=== PATIENT | female | born 1970 | race Hispanic/Latino ===

== ENCOUNTER 2017-07-19 06:12 | Day surgery (SDC) | payer OTHER ==
[2017-07-18 15:21] VITALS: BP 108/63
[2017-07-18 15:29] LABS: BASOPHILS % (AUTO) 0.6 % (0.0-5.0); EOSINOPHILS % (AUTO) 1.6 % (0.0-8.0); HEMATOCRIT 38.2 % (36-48); LYMPHOCYTES % (AUTO) 18.1 % (21.0-51.0); MEAN CORPUSCULAR HEMOGLOBIN 29.2 pg (27.0-33.0); MEAN CORPUSCULAR HGB CONC 33.3 g/dL (32.0-36.0); MEAN CORPUSCULAR VOLUME 87.6 fL (79-99); MONOCYTES % (AUTO) 6.8 % (3.0-13.0); NEUTROPHILS % (AUTO) 72.9 % (40.0-77.0); NUCLEATED RED BLOOD CELLS 0.1 % (0.0-0.19); PLATELET COUNT (AUTO) 421 K/uL (130-400); RED BLOOD CELL COUNT(AUTO) 4.36 MIL/uL (4.00-5.50); RED CELL DISTRIBUTION WIDTH 14.4 % (11.0-15.5); WHITE BLOOD COUNT (AUTO) 12.5 K/uL (4.8-10.8)
[2017-07-18 16:01] LABS: APPEARANCE,URINE Clear (CLEAR); BILIRUBIN,URINE Negative (NEGATIVE); COLOR,URINE Yellow (YELLOW); GLUCOSE, URINE (UA) Negative (NEGATIVE); KETONES,URINE Trace mg/dL (NEGATIVE); LEUKOCYTE ESTERASE ,URINE Small (NEGATIVE); NITRATE,URINE Positive (NEGATIVE); OCCULT BLOOD,URINE Nonhemolyzed Trace (NEGATIVE); PROTEIN,URINE Negative (NEGATIVE)
[2017-07-18 16:16] LABS: BACTERIA,URINE Many /HPF (None Seen); RBC,URINE 0-1 /HPF (0-1)
[2017-07-19] VITALS (17 sets, daily range): BP systolic 97–116; BP diastolic 53–69
[~2017-07-19] VITALS: Ht 170.2 cm; Wt 125.1 kg
[~2017-07-19 06:12] MED LIST: BETH5TAB PO; CETI10CA5 PO; DESV100T PO; GENTAMICIN SULFATE 80 MG in SODIUM CHLORIDE 0.9% 100 ML IV SCH; LOSA25TA21 PO; MELA5TAB14 PO; METF500T6 PO
[2017-07-19] MEDS ORDERED: SODIUM CHLORIDE 0.9% 1000ML 1,000 ML IV ONE (06:32)
[2017-07-19] MEDS: CEFAZOLIN SODIUM 1 GM VIAL ONE ×2 (06:42→07:51)
[2017-07-19] MEDS ORDERED: CELE-84 PO (06:45)
[2017-07-19] MEDS ORDERED: ATOR40TA71 PO (06:45)
[2017-07-19] MEDS ORDERED: FENO48TA4 PO (06:45)
[2017-07-19] MEDS ORDERED: BUPIVACAINE/PF 0.5% 30ML VIAL ONE (07:07)
[2017-07-19] MEDS ORDERED: METHYLPREDNISOLONE SOD SUCC 40MG/ML 1ML ONE (07:08)
[2017-07-19] MEDS: GENTAMICIN SULFATE 240 MG in SODIUM CHLORIDE 0.9% 100 ML IV SCH ×2 (07:24)
[2017-07-19] MEDS ORDERED: GLYCOPYRROLATE 0.2 MG/ML 5 ML VIAL ONE (07:35)
[2017-07-19] MEDS ORDERED: LIDOCAINE PF 2% 5ML ABBOJECT ONE (07:35)
[2017-07-19] MEDS ORDERED: DEXAMETHASONE SOD PHOSPHATE 10MG/ML 1ML VIAL ONE (07:36)
[2017-07-19] MEDS ORDERED: FENTANYL CITRATE PF 50 MCG/1 ML 2ML VIAL ONE ×2 (07:36)
[2017-07-19] MEDS ORDERED: MIDAZOLAM HCL 1 MG/ML 2ML VIAL ONE ×2 (07:36→08:03)
[2017-07-19] MEDS ORDERED: PROPOFOL 10 MG/ML 20ML VIAL IV ONE (07:36)
[2017-07-19] MEDS ORDERED: IOPAMIDOL 10 ML VIAL ONE (07:50)
[2017-07-19] MEDS ORDERED: CEFAZOLIN 3GM /D5W 100ML 100 ML IV ONE (09:00)
== END 2017-07-19 10:00 | disposition home or self-care (01) ==
LOC: DAH 06:12
PROVIDERS: ATTEND Orthopaedic Surgery
DX: M16.12 Unilateral primary osteoarthritis, left hip (principal); Z68.41 Body mass index [BMI] 40.0-44.9, adult; Z79.899 Other long term (current) drug therapy; K21.9 Gastro-esophageal reflux disease without esophagitis; E78.5 Hyperlipidemia, unspecified; Z98.890 Other specified postprocedural states; Z83.3 Family history of diabetes mellitus; Z82.49 Family history of ischemic heart disease and other diseases of the circulatory system; Z80.8 Family history of malignant neoplasm of other organs or systems
CPT/HCPCS: 20610; 36415; 77002; 81001; 82948 ×2; 85025; A4218; J0690 ×2; J1030; J1100; J1580 ×2; J2001; J2250 ×2; J2704; J3010 ×2; J3490 ×2; J7030; Q9966; J2920

== ENCOUNTER → 2017-11-15 | Outpatient (CLI) | payer OTHER ==
[~2017-11-15] MED LIST changes: +ATOR40TA71 PO; +CELE-84 PO; +FENO48TA4 PO; -GENTAMICIN SULFATE 80 MG in SODIUM CHLORIDE 0.9% 100 ML IV SCH; +LOSA25TA16 PO; -LOSA25TA21 PO; +METF-444 PO; -METF500T6 PO
== END | disposition home or self-care (01) ==
LOC: RAH 13:14
PROVIDERS: ATTEND Internal Medicine
DX: Z01.812 Encounter for preprocedural laboratory examination (principal); K21.9 Gastro-esophageal reflux disease without esophagitis; M19.90 Unspecified osteoarthritis, unspecified site; F32.9 Major depressive disorder, single episode, unspecified; E78.5 Hyperlipidemia, unspecified
CPT/HCPCS: 71046

== ENCOUNTER 2017-11-27 14:00 | Inpatient (IN) | payer OTHER ==
[~2017-11-27] VITALS: Ht 170.2 cm; Wt 122.7 kg
[~2017-11-27 14:00] MED LIST changes: -BETH5TAB PO; -CETI10CA5 PO; -MELA5TAB14 PO
[2017-11-27 15:15] VITALS: BP 107/65
[2017-11-27 15:22] LABS: BASOPHILS % (AUTO) 0.4 % (0.0-5.0); EOSINOPHILS % (AUTO) 1.4 % (0.0-8.0); HEMATOCRIT 37.2 % (36-48); LYMPHOCYTES % (AUTO) 14.4 % (21.0-51.0); MEAN CORPUSCULAR HEMOGLOBIN 28.6 pg (27.0-33.0); MEAN CORPUSCULAR HGB CONC 32.7 g/dL (32.0-36.0); MEAN CORPUSCULAR VOLUME 87.5 fL (79-99); MONOCYTES % (AUTO) 5.1 % (3.0-13.0); NEUTROPHILS % (AUTO) 78.7 % (40.0-77.0); PLATELET COUNT (AUTO) 337 K/uL (130-400); RED BLOOD CELL COUNT(AUTO) 4.25 MIL/uL (4.00-5.50); RED CELL DISTRIBUTION WIDTH 14.6 % (11.0-15.5); WHITE BLOOD COUNT (AUTO) 14.3 K/uL (4.8-10.8)
[2017-11-27 15:25] LABS: APPEARANCE,URINE Clear (CLEAR); BILIRUBIN,URINE Negative (NEGATIVE); COLOR,URINE Yellow (YELLOW); GLUCOSE, URINE (UA) Negative (NEGATIVE); KETONES,URINE Negative (NEGATIVE); LEUKOCYTE ESTERASE ,URINE Negative (NEGATIVE); NITRATE,URINE Negative (NEGATIVE); OCCULT BLOOD,URINE Small (NEGATIVE); PH,URINE 5.5 (5.0-8.0); PROTEIN,URINE Negative (NEGATIVE)
[2017-11-27 15:32] LABS: CREATININE 0.8 mg/dL (0.5-1.5)
[2017-11-27 15:34] LABS: INR 0.96 (0.85-1.15); PARTIAL THROMBOPLASTIN TIME 31.1 SEC (26.3-35.5); PROTHROMBIN TIME 10.1 SEC (9.6-11.6)
[2017-11-27 15:53] LABS: BACTERIA,URINE Few /HPF (None Seen); SQUAMOUS EPITHELIAL CELL,UR Few /HPF (0-2); WBC,URINE 0-1 /HPF (0-1)
[2017-11-27 15:54] LABS: MUCUS,URINE Few LPF (None Seen)
[2017-11-27] MEDS ORDERED: BETH25TA PO (17:09)
[2017-11-27] MEDS ORDERED: ACET-2743 PO (17:09)
[2017-11-27] MEDS ORDERED: LUBI24CA2 PO (17:09)
[2017-11-27] MEDS ORDERED: FAMO20TA8 PO (17:09)
[2017-11-27] MEDS ORDERED: MELATONIN PO (17:09)
[2017-11-27] MEDS ORDERED: TRAM50TA4 PO (17:09)
[2017-11-27] MEDS ORDERED: CEPH500C2 PO (17:09)
[2017-11-27] MEDS ORDERED: MONT10TA24 PO (17:13)
[2017-11-28] VITALS (18 sets, daily range): BP systolic 102–126; BP diastolic 54–66
[2017-11-28] MEDS ORDERED: CEFAZOLIN 3GM /D5W 100ML 100 ML IV SCH (06:00)
[2017-11-28] MEDS ORDERED: SODIUM CHLORIDE 0.9% 1000ML 1,000 ML IV ONE (12:17)
[2017-11-28] MEDS ORDERED: CEFAZOLIN SODIUM 1 GM VIAL ONE ×2 (12:17→15:18)
[2017-11-28] MEDS ORDERED: METOCLOPRAMIDE 10 MG/2 ML VIAL ONE (12:58)
[2017-11-28] MEDS ORDERED: CELECOXIB 200 MG CAP ONE (12:59)
[2017-11-28] MEDS ORDERED: ACETAMINOPHEN EXTRA STRENGTH 500 MG TABLET ONE (12:59)
[2017-11-28] MEDS ORDERED: KETOROLAC TROMETHAMINE 15MG/ML ONE (12:59)
[2017-11-28] MEDS ORDERED: OXYCODONE HCL 10 MG TAB.SR.12H PO ONE (13:00)
[2017-11-28] MEDS ORDERED: LIDOCAINE PF 2% 5ML ABBOJECT ONE (13:10)
[2017-11-28] MEDS ORDERED: ROPIVACAINE 0.5% 5MG/ML 30ML IJ ONE (13:10)
[2017-11-28] MEDS ORDERED: GLYCOPYRROLATE 1 MG/5 ML SYRINGE ONE (13:11)
[2017-11-28] MEDS ORDERED: ROCURONIUM 10MG/1ML SYR 10 MG/ML ML ONE ×2 (13:11→15:36)
[2017-11-28] MEDS ORDERED: MIDAZOLAM HCL 1 MG/ML 2ML VIAL ONE ×2 (13:11→14:21)
[2017-11-28] MEDS ORDERED: FENTANYL CITRATE PF 50 MCG/1 ML 2ML VIAL ONE ×2 (13:11→17:40)
[2017-11-28] MEDS ORDERED: NEOSTIGMINE 5MG/5ML SYR IV ONE (13:11)
[2017-11-28] MEDS ORDERED: PROPOFOL 10 MG/ML 20ML VIAL IV ONE (13:11)
[2017-11-28] MEDS ORDERED: DEXAMETHASONE SOD PHOSPHATE 10MG/ML 1ML VIAL ONE (13:12)
[2017-11-28] MEDS ORDERED: ONDANSETRON HCL 4 MG/2 ML VIAL ONE (13:12)
[2017-11-28] MEDS ORDERED: FAMOTIDINE/PF 20 MG/2 ML VIAL IV ONE (13:23)
[2017-11-28] MEDS ORDERED: KETAMINE 50MG/ML SYRINGE 50 MG/ML DISP.SYRIN IV ONE (13:24)
[2017-11-28] MEDS ORDERED: TRANEXAMIC ACID 1000MG/10ML IV ONE (15:18)
[2017-11-28] MEDS: CEFAZOLIN SODIUM 1 GM VIAL ONE ×2 (17:15→17:16)
[2017-11-28] MEDS ORDERED: LIDOCAINE HCL-MPF 1% 2ML VIAL IVP PRN (17:45)
[2017-11-28] MEDS ORDERED: TRAMADOL HCL 50 MG TABLET PO PRN (17:45)
[2017-11-28] MEDS ORDERED: FERROUS FUMARATE 324 MG TABLET PO PRN (17:45)
[2017-11-28] MEDS ORDERED: ONDANSETRON HCL 4 MG/2 ML VIAL IVP PRN (17:45)
[2017-11-28] MEDS ORDERED: TEMAZEPAM 15 MG CAPSULE PO PRN (17:45)
[2017-11-28] MEDS ORDERED: DiphenhydrAMINE HCL 50 MG/ML VIAL IVP PRN (17:45)
[2017-11-28] MEDS ORDERED: POTASSIUM CHLORIDE 10% ELIXIR 20 MEQ/15 ML UDCUP PO PRN (17:45)
[2017-11-28] MEDS ORDERED: POTASSIUM CHLORIDE 20MEQ/100ML 100 ML IV PRN (17:45)
[2017-11-28] MEDS ORDERED: POTASSIUM CHLORIDE 20 MEQ ERTAB PO PRN (17:45)
[2017-11-28] MEDS ORDERED: MEPERIDINE-PF 25 MG/ML SYG ONE ×2 (18:38→18:50)
[2017-11-28] MEDS ORDERED: LUBIPROSTONE 24 MCG CAP PO PRN (19:45)
[2017-11-28] MEDS: INSULIN HUMULIN R 100 UNIT/ML 3ML SQ SCH (21:00)
[2017-11-28] MEDS ORDERED: FAMOTIDINE 20MG TAB 20 MG TAB PO SCH (21:00)
[2017-11-28] MEDS: SODIUM CHLORIDE 0.9% 1000ML 1,000 ML IV SCH (21:09)
[2017-11-28] MEDS: KETOROLAC TROMETHAMINE 15MG/ML IV PRN (21:10)
[2017-11-28] MEDS: OXYCODONE HCL 5 MG TAB PO PRN (21:11)
[2017-11-28] MEDS: ATORVASTATIN CALCIUM 40 MG TABLET PO SCH (21:16)
[2017-11-28] MEDS: FENOFIBRATE NANOCRYSTALLIZED 48 MG TAB PO SCH (21:16)
[2017-11-28] MEDS: PREGABALIN 25 MG CAP PO SCH (21:16)
[2017-11-28] MEDS: ACETAMINOPHEN EXTRA STRENGTH 500 MG TABLET PO SCH (21:16)
[2017-11-28] MEDS: LOSARTAN 50 MG TABLET PO SCH (21:17)
[2017-11-28] MEDS: ASPIRIN 325 MG TABLET PO SCH (21:17)
[2017-11-28] MEDS: CELECOXIB 200 MG CAP PO SCH (21:17)
[2017-11-28] MEDS: BETHANECHOL CHLORIDE 25 MG TABLET PO SCH (21:17)
[2017-11-28] MEDS: CEFAZOLIN 3GM /D5W 100ML 100 ML IV SCH (23:25)
[2017-11-29] MEDS: ACETAMINOPHEN EXTRA STRENGTH 500 MG TABLET PO SCH ×4 (00:47→23:59)
[2017-11-29] MEDS: OXYCODONE HCL 5 MG TAB PO PRN ×2 (01:17→08:28)
[2017-11-29] MEDS: SODIUM CHLORIDE 0.9% 1000ML 1,000 ML IV SCH ×2 (03:42→13:42)
[2017-11-29 04:29] VITALS: BP 105/51
[2017-11-29 04:52] LABS: HEMATOCRIT 29.8 % (36-48); MEAN CORPUSCULAR HEMOGLOBIN 28.7 pg (27.0-33.0); MEAN CORPUSCULAR HGB CONC 32.8 g/dL (32.0-36.0); MEAN CORPUSCULAR VOLUME 87.7 fL (79-99); PLATELET COUNT (AUTO) 305 K/uL (130-400); RED CELL DISTRIBUTION WIDTH 14.7 % (11.0-15.5); WHITE BLOOD COUNT (AUTO) 17.8 K/uL (4.8-10.8)
[2017-11-29 05:06] LABS: CREATININE 0.7 mg/dL (0.5-1.5)
[2017-11-29] MEDS: INSULIN HUMULIN R 100 UNIT/ML 3ML SQ SCH ×4 (05:21→21:00)
[2017-11-29] MEDS: CEFAZOLIN 3GM /D5W 100ML 100 ML IV SCH (05:50)
[2017-11-29 07:30] VITALS: BP 101/57
[2017-11-29] MEDS: ASPIRIN 325 MG TABLET PO SCH ×2 (08:24→21:50)
[2017-11-29] MEDS: BETHANECHOL CHLORIDE 25 MG TABLET PO SCH ×2 (08:24→21:50)
[2017-11-29] MEDS: CELECOXIB 200 MG CAP PO SCH ×2 (08:25→21:50)
[2017-11-29] MEDS: METFORMIN HCL 500 MG TAB.SR.24H PO SCH (08:26)
[2017-11-29] MEDS: PREGABALIN 25 MG CAP PO SCH ×2 (08:26→21:50)
[2017-11-29] MEDS: POLYETHYLENE GLYCOL 3350 17 GM POWD.PACK PO SCH (08:27)
[2017-11-29] MEDS: MONTELUKAST SODIUM 10 MG TAB PO SCH (08:27)
[2017-11-29] MEDS: FAMOTIDINE 20MG TAB 20 MG TAB PO SCH (08:27)
[2017-11-29] MEDS: CALCIUM CARBONATE 500 MG TABLET PO PRN ×2 (08:27→21:50)
[2017-11-29] MEDS: DESVENLAFAXINE SUCCINATE 100 MG PO SCH (08:35)
[2017-11-29] MEDS ORDERED: TAMSULOSIN HCL 0.4 MG CAP.ER.24H PO SCH (09:00)
[2017-11-29] MEDS: KETOROLAC TROMETHAMINE 15MG/ML IV PRN ×3 (10:01→23:59)
[2017-11-29 11:15] VITALS: BP 97/55
[2017-11-29 16:00] VITALS: BP 100/69
[2017-11-29 20:29] VITALS: BP 110/57
[2017-11-29] MEDS: ATORVASTATIN CALCIUM 40 MG TABLET PO SCH (21:50)
[2017-11-29] MEDS: LOSARTAN 50 MG TABLET PO SCH (21:50)
[2017-11-29] MEDS: FENOFIBRATE NANOCRYSTALLIZED 48 MG TAB PO SCH (21:50)
[2017-11-29 23:57] VITALS: BP 110/57
[2017-11-30 04:59] VITALS: BP 107/53
[2017-11-30] MEDS: INSULIN HUMULIN R 100 UNIT/ML 3ML SQ SCH ×3 (06:38→16:29)
[2017-11-30 07:24] VITALS: BP 108/68
[2017-11-30] MEDS: ASPIRIN 325 MG TABLET PO SCH ×2 (08:32→20:31)
[2017-11-30] MEDS: MONTELUKAST SODIUM 10 MG TAB PO SCH (08:33)
[2017-11-30] MEDS: PREGABALIN 25 MG CAP PO SCH ×2 (08:33→21:28)
[2017-11-30] MEDS: POLYETHYLENE GLYCOL 3350 17 GM POWD.PACK PO SCH (08:33)
[2017-11-30] MEDS: FAMOTIDINE 20MG TAB 20 MG TAB PO SCH (08:33)
[2017-11-30] MEDS: METFORMIN HCL 500 MG TAB.SR.24H PO SCH (08:33)
[2017-11-30] MEDS: CELECOXIB 200 MG CAP PO SCH ×2 (08:33→21:27)
[2017-11-30] MEDS: BETHANECHOL CHLORIDE 25 MG TABLET PO SCH ×2 (08:33→21:28)
[2017-11-30] MEDS: ACETAMINOPHEN EXTRA STRENGTH 500 MG TABLET PO SCH ×2 (08:34→16:26)
[2017-11-30] MEDS: OXYCODONE HCL 5 MG TAB PO PRN ×3 (08:37→20:31)
[2017-11-30] MEDS: DESVENLAFAXINE SUCCINATE 100 MG PO SCH (08:43)
[2017-11-30 11:22] VITALS: BP 100/54
[2017-11-30 16:00] VITALS: BP 113/55
[2017-11-30] MEDS ORDERED: BISACODYL 10 MG SUPP.RECT RC ONE (17:33)
[2017-11-30] MEDS ORDERED: HYDR-309 PO (18:57)
[2017-11-30] MEDS ORDERED: ASPI-1012 PO (18:57)
[2017-11-30] MEDS: ATORVASTATIN CALCIUM 40 MG TABLET PO SCH (21:00)
[2017-11-30] MEDS: FENOFIBRATE NANOCRYSTALLIZED 48 MG TAB PO SCH (21:28)
[2017-11-30] MEDS: LOSARTAN 50 MG TABLET PO SCH (21:28)
[2017-12-01] MEDS ORDERED: BISACODYL 10 MG SUPP.RECT RC PRN (17:45)
== END 2017-11-30 22:10 | DRG 470 ==
LOC: EDSTATUS 14:00 → DAHIP 11-28 11:20 → 4AH 11-28 19:20
PROVIDERS: ADMIT Orthopaedic Surgery; ATTEND Orthopaedic Surgery
PROC: 0SRB0JZ Replacement of Left Hip Joint with Synthetic Substitute, Open Approach (ICD-10-PCS; principal; 2017-11-29)
PROC: 3E0234Z Introduction of Serum, Toxoid and Vaccine into Muscle, Percutaneous Approach (ICD-10-PCS; 2017-11-29)
DX: M16.12 Unilateral primary osteoarthritis, left hip (principal); F11.20 Opioid dependence, uncomplicated; I10 Essential (primary) hypertension; K21.9 Gastro-esophageal reflux disease without esophagitis; E78.2 Mixed hyperlipidemia; E11.42 Type 2 diabetes mellitus with diabetic polyneuropathy; K76.0 Fatty (change of) liver, not elsewhere classified; N31.9 Neuromuscular dysfunction of bladder, unspecified; R39.15 Urgency of urination; E11.65 Type 2 diabetes mellitus with hyperglycemia; Z23 Encounter for immunization; Z82.49 Family history of ischemic heart disease and other diseases of the circulatory system; Z80.9 Family history of malignant neoplasm, unspecified; Z83.3 Family history of diabetes mellitus
CPT/HCPCS: 36415; 73503; 80048; 81001; 82948; 85025; 85027; 85610; 85730; 88304; 88311; 96374; 96375; 97039; A4218; C1776; J0690; J1100; J1885; J2001; J2175; J2250; J2405; J2704; J2710; J2765; J2795; J3010; J3490; J7030; Q2038

== ENCOUNTER → 2018-08-15 | Outpatient (CLI) | payer OTHER ==
[~2018-08-15] MED LIST changes: +ASPI-1012 PO; +BETH25TA PO; -CELE-84 PO; +CEPH500C2 PO; +FAMO20TA8 PO; +HYDR-4457 PO; -LOSA25TA16 PO; +LOSA25TA41 PO; +LUBI24CA2 PO; +MELATONIN PO; +MONT10TA24 PO
== END | disposition home or self-care (01) ==
LOC: RAH 11:22
PROVIDERS: ATTEND Internal Medicine
DX: M79.642 Pain in left hand (principal)
CPT/HCPCS: 73130

== ENCOUNTER → 2019-02-08 | Outpatient (CLI) | payer OTHER ==
[~2019-02-08] MED LIST changes: +FENO48TA16 PO; -FENO48TA4 PO
== END | disposition home or self-care (01) ==
LOC: RAH 13:15
PROVIDERS: ATTEND Internal Medicine
DX: Z12.31 Encounter for screening mammogram for malignant neoplasm of breast (principal)
CPT/HCPCS: 77067

== ENCOUNTER 2019-08-01 01:58 | Emergency (ER) | payer OTHER ==
[~2019-08-01 01:58] MED LIST changes: -FENO48TA16 PO; +FENO48TA9 PO; -MONT10TA24 PO; +MONT10TA26 PO
[2019-08-01 02:58] LABS: BASOPHILS % (AUTO) 0.3 % (0.0-5.0); EOSINOPHILS % (AUTO) 0.7 % (0.0-8.0); HEMATOCRIT 39.8 % (36-48); LYMPHOCYTES % (AUTO) 11.2 % (21.0-51.0); MEAN CORPUSCULAR HEMOGLOBIN 30.2 pg (27.0-33.0); MEAN CORPUSCULAR HGB CONC 32.7 g/dL (32.0-36.0); MEAN CORPUSCULAR VOLUME 92.3 fL (79-99); MONOCYTES % (AUTO) 3.6 % (3.0-13.0); NEUTROPHILS % (AUTO) 83.9 % (40.0-77.0); PLATELET COUNT (AUTO) 304 K/uL (130-400); RED BLOOD CELL COUNT(AUTO) 4.31 MIL/uL (4.00-5.50); WHITE BLOOD COUNT (AUTO) 15.7 K/uL (4.8-10.8)
[2019-08-01 03:05] LABS: CREATININE 0.8 mg/dL (0.5-1.5); POTASSIUM 3.5 mmol/L (3.5-5.1)
[2019-08-01] MEDS ORDERED: ONDANSETRON HCL 4 MG/2 ML VIAL ONE (03:05)
[2019-08-01] MEDS ORDERED: FAMOTIDINE/PF 20 MG/2 ML VIAL IV ONE (03:06)
[2019-08-01 03:09] LABS: ALBUMIN 3.6 g/dL (3.5-5.0); BILIRUBIN,TOTAL 0.5 mg/dL (0.2-1.0); TOTAL PROTEIN, SERUM 7.3 g/dL (6.0-8.3)
[2019-08-01 03:10] LABS: INR 0.92 (0.85-1.15); PARTIAL THROMBOPLASTIN TIME 28.2 SEC (26.3-35.5)
[2019-08-01] MEDS ORDERED: LIDOCAINE HCL 2% VISCOUS 15 ML UDCUP ONE (04:32)
[2019-08-01] MEDS ORDERED: METOCLOPRAMIDE 10 MG/2 ML VIAL ONE (04:32)
[2019-08-01] MEDS ORDERED: MAG HYDROX/AL HYDROX/SIMETH ES 30 ML SUSP UDCUP ONE (04:32)
[2019-08-01 04:47] LABS: APPEARANCE,URINE Clear (CLEAR); BILIRUBIN,URINE Negative (NEGATIVE); COLOR,URINE Dark Yellow (YELLOW); GLUCOSE, URINE (UA) Negative (NEGATIVE); KETONES,URINE Trace mg/dL (NEGATIVE); LEUKOCYTE ESTERASE ,URINE Trace (NEGATIVE); NITRATE,URINE Negative (NEGATIVE); OCCULT BLOOD,URINE Small (NEGATIVE); PROTEIN,URINE Negative (NEGATIVE)
[2019-08-01 05:10] LABS: BACTERIA,URINE Few /HPF (None Seen); MUCUS,URINE Few LPF (None Seen); SQUAMOUS EPITHELIAL CELL,UR 0-2 /HPF (0-2)
== END 2019-08-01 05:22 | disposition home or self-care (01) ==
LOC: EDH 01:58
DX: R10.13 Epigastric pain (principal); R11.10 Vomiting, unspecified; E11.9 Type 2 diabetes mellitus without complications; E78.00 Pure hypercholesterolemia, unspecified; K21.9 Gastro-esophageal reflux disease without esophagitis; F32.9 Major depressive disorder, single episode, unspecified; Z90.49 Acquired absence of other specified parts of digestive tract; Z90.710 Acquired absence of both cervix and uterus
CPT/HCPCS: 36415; 76705; 80053; 81001; 82550; 83605; 83690; 84484; 85025; 85610; 85730; 93005; 96361; 96374; 96375; 99285; J2405; J2765; J3490

== ENCOUNTER → 2020-02-10 | Outpatient (CLI) | payer OTHER ==
[~2020-02-10] MED LIST changes: -MONT10TA26 PO; +MONT10TA96 PO
== END | disposition home or self-care (01) ==
LOC: RAH 12:45
PROVIDERS: ATTEND Internal Medicine
DX: Z12.31 Encounter for screening mammogram for malignant neoplasm of breast (principal); N64.89 Other specified disorders of breast
CPT/HCPCS: 77067

== ENCOUNTER → 2021-02-10 | Outpatient (CLI) | payer OTHER ==
[~2021-02-10] MED LIST changes: +FENO48TA10 PO; -FENO48TA9 PO; +MONT-39 PO; -MONT10TA96 PO
== END | disposition home or self-care (01) ==
LOC: RAH 13:09
PROVIDERS: ATTEND Internal Medicine
DX: Z12.31 Encounter for screening mammogram for malignant neoplasm of breast (principal)
CPT/HCPCS: 77067

== ENCOUNTER → 2023-03-02 | Outpatient (CLI) | payer OTHER | END | disposition home or self-care (01) | LOC: RAH 14:17 | PROVIDERS: ATTEND Internal Medicine | DX: Z12.31 Encounter for screening mammogram for malignant neoplasm of breast (principal) | CPT/HCPCS: 77067 ==

== ENCOUNTER → 2024-03-04 | Outpatient (CLI) | payer OTHER ==
--- NOTE | 2024-03-04 09:34 | HMCIMG ---
SCREENING MAMMOGRAM REASON: Annual Exam COMPARISON: none TECHNIQUE: CC and MLO views of the bilateral breasts were performed.CAD was performed as well. FINDINGS: Parenchymal density: There are scattered areas of fibroglandular density. There are no focal mass lesions. There are no pathologic appearing calcifications. There is no evidence of architectural distortion or skin thickening. IMPRESSION: Normal screening mammogram The patient was entered into a reminder system with a target due date for their next mammogram. BI-RADS CATEGORY 1: NEGATIVE Recommend monthly self breast exam as well as annual clinical examination. A negative x-ray should not delay biopsy if a dominant or clinically suspicious mass is present, since 8-10% of cancers are not identified by mammography. Dense breasts particularly, may obscure an underlying neoplasm. Some of these may be detected clinically and therefore, clinical examination is an essential part of breast evaluation.
== END | disposition home or self-care (01) ==
LOC: RAH 08:58
PROVIDERS: ATTEND Internal Medicine
DX: Z12.31 Encounter for screening mammogram for malignant neoplasm of breast (principal); R92.30 Dense breasts, unspecified
CPT/HCPCS: 77067

== ENCOUNTER → 2024-03-21 | Outpatient (CLI) | payer OTHER ==
--- NOTE | 2024-03-21 13:16 | HMCIMG ---
HIP BILAT 2VW REASON: PELVIC AND PERINEAL PAIN COMPARISON: None TECHNIQUE: AP pelvis and bilateral hip views were performed, 3 views. 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 Bones appear normal. There are no fractures. Right hip joint space appears preserved as do the SI joints. There are no focal osseous lesions. IMPRESSION: 1. No acute finding.
== END | disposition home or self-care (01) ==
LOC: RAH 12:17
PROVIDERS: ATTEND Internal Medicine
DX: R10.2 Pelvic and perineal pain (principal); Z96.642 Presence of left artificial hip joint
CPT/HCPCS: 73521

== ENCOUNTER → 2024-06-17 | Outpatient (CLI) | payer OTHER ==
[~2024-06-17] MED LIST changes: -LUBI24CA2 PO; +LUBI24CA40 PO
[2024-06-17 15:09] LABS: AMPHET/METH SCREEN,URINE NEGATIVE (NEGATIVE); BARBITURATE SCREEN, URINE NEGATIVE (NEGATIVE); BENZODIAZEPINES SCREEN,URINE NEGATIVE (NEGATIVE); CANNABINOID SCREEN,URINE POSITIVE (NEGATIVE); COCAINE SCREEN,URINE NEGATIVE (NEGATIVE); OPIATE SCREEN,URINE NEGATIVE (NEGATIVE); PHENCYCLIDINE SCREEN,URINE NEGATIVE (NEGATIVE)
--- NOTE | 2024-06-18 06:30 | EKG ---
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
== END | disposition home or self-care (01) ==
LOC: LAB 14:23
PROVIDERS: ATTEND Psychiatry & Neurology Psychiatry
DX: I21.9 Acute myocardial infarction, unspecified (principal); Z79.899 Other long term (current) drug therapy
CPT/HCPCS: 80305; 93005